=== PATIENT | male | born 1945 | race Caucasian/White ===

== ENCOUNTER 2017-06-22 00:09 | Inpatient (IN) | payer OTHER ==
[~2017-06-22] VITALS: Ht 170.2 cm; Wt 71.4 kg
--- NOTE | ~2017-06-22 | CR72 ---
[facility] A Service of [facility] & [facility] RADIOLOGY TEXT RESULTS PATIENT: TEA DUARTE LOCATION: [facility] 57 : 46 UNIT #: [id number] AGE: [address]: Keith Saravia MD SEX: M ORDER DR: [id number] [place] [address] [facility]. [place], [place] [address] [id number] I MR#: [id number] Acc #: [id number] NAME: TEA DUARTE. : 1945 SEX: M STUDY DATE/TIME: 06/26/2017 6:21 UNIT: [facility] ROOM: [facility] STUDY DESCRIPTION: CR Chest Single View Portable Attending Physician: Keith Saravia M.D. Ordering Physician: Yadira Tapia D.O. Primary Care Physician: Primary Care Physician No MEDICAL IMAGING REPORT This report is preliminary unless electronic signature is present EXAM Portable chest. INDICATIONS Shortness of breath and respiratory distress since June 22, 2017. . FINDINGS Comparison is made to a prior examination from June 24, 2017. Heart size is within normal limits. Dense consolidation within the right upper lobe has worsened when compared to the June 24 examination. Additional infiltrates are seen throughout the left lung which I think are probably stable. No pneumothorax is identified. There is some mild blunting of costophrenic angles which could reflect trace effusions. Dictated by... Sudha White M.D. THIS IS AN ELECTRONICALLY VERIFIED REPORT Sudha White M.D. at 06/27/2017 5:02 PM AFF/lb TD: 06/27/2017 09:17 JOB #: [id number] MEDICAL IMAGING REPORT Page 1 of 1 COPY
--- NOTE | ~2017-06-22 | EKG ---
PATIENT: TEA DUARTE UNIT #: [id number] Ventricular Rate: 75 BPM Atrial Rate: 75 BPM P-R Interval: 132 ms QRS Duration: 80 ms Q-T Interval: 380 ms QTC Calculation(Bezet): 424 ms P [place]: 79 degrees Calculated R [place]: 37 degrees Calculated T [place]: -35 degrees Diagnosis Line: Normal sinus rhythm Diagnosis Line: T wave abnormality, consider inferior ischemia Diagnosis Line: T wave abnormality, consider anterolateral Diagnosis Line: ischemia Diagnosis Line: Abnormal ECG Diagnosis Line: When compared with ECG of 24-JUN-2017 12:31, Diagnosis Line: (unconfirmed) Diagnosis Line: Vent. rate has decreased BY 78 BPM Diagnosis Line: Criteria for Septal infarct are no longer Present Diagnosis Line: ST no longer depressed in Anterolateral leads Diagnosis Line: T wave inversion now evident in Anterior leads Diagnosis Line: Confirmed by NIK CLEMONS MD ([id number]) on 06/29/2017 Diagnosis Line: 7:41:01 AM INTERPRETING MD: KACI CARTER
--- NOTE | ~2017-06-22 | CR72 ---
[facility] A Service of [facility] RADIOLOGY TEXT RESULTS PATIENT: TEA DUARTE LOCATION: [place] [address] : 46 UNIT #: [id number] AGE: [address]: Keith Saravia MD SEX: M ORDER DR: [id number] [place] [id number] [facility]. [place], [place] [address] [id number] I MR#: [id number] Acc #: [id number] NAME: TEA DUARTE : 1945 SEX: M STUDY DATE/TIME: 06/24/2017 12:57 UNIT: [facility] ROOM: [facility] STUDY DESCRIPTION: CR Chest Single View Portable Attending Physician: Keith Saravia M.D. Ordering Physician: Conrad Griffiths M.D. Primary Care Physician: No Primary Care Physician MEDICAL IMAGING REPORT This report is preliminary unless electronic signature is present EXAM Chest portable 06/24/2017 12:57 hours. HISTORY 71-year-old woman complaining of anterior chest pain and shortness of air today. History of CABG and COPD. COMPARISON Chest x-ray 06/23/2017. FINDINGS Upright portable chest demonstrates median sternotomy change with stable heart size. There is diffuse worsening of airspace change in the left midlung, left lung base and right midlung and right lung base since yesterday. Findings could represent edema or pneumonia. IMPRESSION Significant interval worsening of airspace changes in the left midlung, left lung base, right midlung and right lung base with sparing of the right upper lung where there is emphysematous change. Findings have clearly progressed since yesterday. No definite effusions. Dictated by... Karley Cortez M.D. THIS IS AN ELECTRONICALLY VERIFIED REPORT Karley Cortez M.D. at 06/25/2017 5:21 PM SMM/gz TD: 06/24/2017 16:47 JOB #: [id number] MEDICAL IMAGING REPORT [facility] A Service of [facility] & [facility] RADIOLOGY TEXT RESULTS PATIENT: TEA DUARTE LOCATION: [facility] 576-01 : 46 UNIT #: [id number] AGE: [address]: Keith Saravia MD SEX: M ORDER DR: Page 1 of 1 COPY
--- NOTE | ~2017-06-22 | EKG ---
PATIENT: TEA DUARTE UNIT #: [id number] Ventricular Rate: 151 BPM Atrial Rate: 151 BPM P-R Interval: 124 ms QRS Duration: 90 ms Q-T Interval: 266 ms QTC Calculation(Bezet): 421 ms P [place]: 89 degrees Calculated R [place]: 70 degrees Calculated T [place]: 70 degrees Diagnosis Line: Poor data quality, interpretation may be Diagnosis Line: adversely affected Diagnosis Line: Sinus tachycardia Diagnosis Line: T wave abnormality, consider inferior ischemia Diagnosis Line: Abnormal ECG Diagnosis Line: When compared with ECG of 27-JUL-2016 07:51, Diagnosis Line: Vent. rate has increased BY 85 BPM Diagnosis Line: T wave inversion now evident in Inferior leads Diagnosis Line: Confirmed by NIK CLEMONS MD ([id number]) on 06/22/2017 Diagnosis Line: 4:57:58 PM INTERPRETING MD: KACI CARTER
--- NOTE | ~2017-06-22 | CT4 ---
[facility] A Service [facility] RADIOLOGY TEXT RESULTS PATIENT: TEA DUARTE LOCATION: [facility] : 46 UNIT #: [id number] AGE: [address]: Keith Saravia MD SEX: M ORDER DR: [id number] [address] [address] [id number] I MR#: [id number] Acc #: [id number] NAME: TEA DUARTE : 1945 SEX: M STUDY DATE/TIME: 06/30/2017 15:56 UNIT: [facility] ROOM: [facility] STUDY DESCRIPTION: CT Abd and Pelv Wo Cont Attending Physician: Keith Saravia M.D. Ordering Physician: Paolo Edwards M.D. Primary Care Physician: Primary Care Physician No MEDICAL IMAGING REPORT This report is preliminary unless electronic signature is present EXAM CT abdomen and pelvis without contrast INDICATIONS Right-sided abdominal pain today. Anemia since 06/28/2017. PROCEDURE Unenhanced CT of the abdomen and pelvis. This CT exam was performed with one or more of the following radiation dose reduction techniques: automatic exposure control, adjustment of mA and/or kV according to patient size, and iterative reconstruction. COMPARISON 02/10/2016 FINDINGS ABDOMEN WITHOUT CONTRAST: Emphysema in the lung bases. Trace right pleural effusion. The liver, spleen, kidneys, adrenal glands, pancreas and gallbladder unremarkable, unenhanced appearance. Bowel loops are nondilated. No evidence for retroperitoneal hemorrhage. PELVIS WITHOUT CONTRAST: There are a few brachytherapy seeds in the prostate gland. No pelvic mass or fluid. No aggressive-appearing bone lesion. IMPRESSION 1. No acute findings in the abdomen or pelvis. 2. Small right pleural effusion. [facility] A Service [facility] RADIOLOGY TEXT RESULTS PATIENT: TEA DUARTE LOCATION: [facility] : 46 UNIT #: [id number] AGE: [address]: Keith Saravia MD SEX: M ORDER DR: Dictated by... Rolando Jean M.D. THIS IS AN ELECTRONICALLY VERIFIED REPORT Rolando Jean M.D. at 07/01/2017 12:11 PM MORALESD/shankar TD: 07/01/2017 05:03 JOB #: [id number] MEDICAL IMAGING REPORT Page 1 of 1 COPY
--- NOTE | ~2017-06-22 | DS ---
Unit #: [id number] #: [id number] Patient: TEA DUARTE [id number] [address] [address] [id number] I MR#: [id number] NAME: TEA DUARTE ROOM: 576 Age: 71 Sex: M Admission Date: 06/22/2017 : 1945 Discharge Date: 07/03/2017 Attending Physician: Keith Saravia M.D. Primary Care Physician: Primary Care Physician No DISCHARGE SUMMARY ADDENDUM DISCHARGE MEDICATIONS 1. Albuterol sulfate two puffs inhalation q.4 hours as needed. 2. Albuterol ipratropium nebulizer p.r.n. 3. Pulmicort nebulizer b.i.d. 4. Prednisone taper per Pulmonology. At the end of taper, will resume 5 mg p.o. daily. 5. Acetaminophen 500 mg q.6 hours as needed p.r.n. 6. Paxil 20 mg p.o. daily. 7. Zetia 10 mg p.o. daily. 8. Incruse Ellipta one puff p.o. daily. 9. Guaifenesin dextromethorphan liquid 10 mL q.4 hours as needed p.r.n. cough. 10. Ativan 0.5 mg p.o. as needed p.r.n. anxiety. 11. Carvedilol 3.125 mg p.o. b.i.d. 12. Brovana nebulizer inhalation b.i.d. 13. Two liters oxygen nasal cannula continuous. 14. Furosemide 20 mg p.o. b.i.d. 15. Atorvastatin 40 mg p.o. daily. 16. Aspirin 81 mg p.o. daily. 17. Daliresp 500 mcg p.o. daily. 18. Isosorbide mononitrate 30 mg p.o. daily. 19. Nitroglycerin sublingual 0.4 mg p.o. q.5 minutes as needed p.r.n. chest pain. 20. Myrbetriq 50 mg p.o. daily. 21. Septra DS one tablet p.o. b.i.d. for five days. This was per Pulmonary. 22. Protonix 40 mg p.o. daily per GI Services. Dictated by... Pernell Alberts/edmond TD: 07/11/2017 10:43 JOB #: [id number] Unit #: [id number] #: [id number] Patient: TEA DUARTE DISCHARGE SUMMARY Page 1 of 1 X Sabrina Norman APRN X DISCHARGE SUMMARY
--- NOTE | ~2017-06-22 | OR ---
Unit #: [id number] #: [id number] Patient: TEA DUARTE [id number] [place], [place] [address] [id number] I MR#: [id number] NAME: TEA DUARTE. ROOM: 576 Date of Procedure: 06/28/2017 Admission Date: 06/22/2017 Surgeon: Paolo Edwards M.D. : 1945 Attending Physician: Keith Saravia M.D. Primary Care Physician: Primary Care Physician No OPERATIVE REPORT PROCEDURE PERFORMED Fiberoptic bronchoscopy. INDICATION A 71-year-old white male with hemoptysis, severe COPD. PREOPERATIVE DIAGNOSIS Hemoptysis. POSTOPERATIVE DIAGNOSIS No endobronchial lesion. Diffuse blood throughout tracheobronchial tree. No active bleeding. No endobronchial lesions. DESCRIPTION OF PROCEDURE Procedure was done on MAC. The patient was placed on supplemental oxygen, O2 saturations remained greater than 90%. The fiberoptic bronchoscope was introduced through the oral cavity via the bite block. The vocal cords were identified and moved normally to breathing, phonation. There was no obvious upper airway bleeding site. There was blood that emanated through the vocal cords into the upper airway. The bronchoscope was passed through the vocal cords into the trachea. There was blood throughout the tracheobronchial tree. There were no lesions identified in the trachea. The main aditya was sharp. The bronchoscope was advanced down the right mainstem into the bronchus intermedius, right middle lobe, right lower lobe, and right upper lobe. There were no endobronchial lesions. There was blood throughout, which was easily suctioned free. There was no evidence of active bleeding site. The bronchoscope was advanced down the left mainstem into the left lower lobe and upper lobe. There was blood seen throughout. There were no endobronchial lesions identified. There was no active bleeding identified. The left lower lobe and upper lobe were washed clear of blood. The bronchoscope was withdrawn and then placed in the right upper lobe anterior segment with 60 mL of normal saline instilled with return of only 8 mL of fluid. It was sent for evaluation as was the bronchial washings. The patient tolerated the procedure well and will be monitored in the outpatient area and returned to his room. Dictated by... Paolo Edwards M.D. LP/modl Unit #: [id number] #: [id number] Patient: TEA DUARTE TD: 06/28/2017 15:01 JOB #: [id number] OPERATIVE REPORT Page 1 of 1 X Paolo Edwards MD PROCEDURE OPERATIVE NOTE
--- NOTE | ~2017-06-22 | CO ---
Unit #: [id number] #: [id number] Patient: TEA MOORE [id number] [place] [id number] [facility] [place] [facility]. [place], [place] [address] [id number] I MR#: [id number] NAME: TEA MOORE ROOM: 557 Age: 71 Sex: M Admission Date: 06/22/2017 : 1945 Attending Physician: Keith Saravia M.D. Primary Care Physician: Primary Care Physician No CONSULTATION REPORT HISTORY OF PRESENT ILLNESS The patient is a 71-year-old gentleman, who has COPD and chronic respiratory failure, followed by Dr. Edwards in our office. He also has coronary artery disease. He gets much of his care at [facility]. Over the last a week or so, he has had "spells" of shortness of breath and diaphoresis. No definite wheezing. No definite sputum production and initially, no chest pain. No fever has been documented. He has been evaluated multiple times and was told "it's my heart." He actually saw Dr. Griffiths, who recommended a cardiac cath, but he wanted to go home first. He did then have another episode. This episode was associated with some epigastric discomfort. He ultimately went back to [facility] and then transferred here. Cardiac cath is scheduled for tomorrow. Chest x-ray reveals bilateral pulmonary infiltrates, but in a very atypical pattern for congestive heart failure. There was a question of pneumonia and certainly has severe COPD and we were asked to evaluate the patient. Arterial blood gas was performed last night, which showed respiratory acidosis. Currently, he is on nasal cannula oxygen after trial of mask ventilation last night. He is nontoxic and feels better. PAST MEDICAL HISTORY Remarkable for COPD; chronic respiratory failure, on oxygen 2 L at home; history of coronary artery disease; aortic stenosis; left ventricular dysfunction with an EF approximately 40%; hypertension; hyperlipidemia; gastroesophageal reflux; and history of prostate cancer. MEDICATIONS AT HOME He is on Brovana and Pulmicort Minineb twice a day, Incruse once a day, albuterol as needed. He is also on diltiazem, prednisone 5 mg a day, Myrbetriq, Zetia, Imdur, Lasix, Coreg, oxygen, Lipitor, Paxil, Plavix, Ativan, Daliresp, and Lissy aspirin. ALLERGIES No known medical allergies, although he did have difficulty taking Chantix in the past. SOCIAL HISTORY Quit smoking 1 year ago. He lives at home. FAMILY HISTORY No definite familial lung disease. REVIEW OF SYSTEMS As above. Also, denies any nausea, vomiting, hematuria, dysuria, focal weakness, or paresthesias. He did have some tingling in his legs, related Unit #: [id number] #: [id number] Patient: TEA MOORE to this last episode. He also states with this last episode when he got nitroglycerin, all of his symptoms went away. Further review of systems negative. PHYSICAL EXAMINATION GENERAL: Reveals a patient, who is in no acute distress. He is afebrile. VITAL SIGNS: Pulse 86, respiratory rate 18, blood pressure 123/88. He currently is on 2 L. HEENT: Pupils equal, round, and reactive to light. Sclerae anicteric. Head atraumatic. NECK: Supple. No supraclavicular or cervical adenopathy appreciated. Mucous membranes moist. CHEST: No expiratory wheeze. Does have some fine crackles. No stridor. CARDIAC: Reveals regular rate and rhythm. Does have a systolic murmur. No gallop. ABDOMEN: Soft and nontender. No hepatomegaly or rebound. EXTREMITIES: Reveal no calf tenderness, no clubbing, cyanosis, or edema. NEUROLOGIC: Grossly intact. No focal motor or sensory deficits. DIAGNOSTIC STUDIES IMAGING STUDIES: Chest x-ray with extensive left-sided alveolar and interstitial infiltrates. He has right lower lobe alveolar and interstitial infiltrates. EKG; he does have some new EKG changes according to Dr. Griffiths. LABORATORY RESULTS: Arterial blood gas; pH is 7.29, pCO2 of 65, PO2 of 80, that was on 100%, on much less oxygen now. BUN is 22, creatinine is 0.8. Troponin is 0.30. BNP is 210. INR normal. White blood cell count 14, hemoglobin 13, and platelet count 240. IMPRESSION 1. Shortness of breath. I suspect this represents angina with some degree of "flash pulmonary edema.". 2. Respiratory failure, acute on chronic hypercapnic-hypoxemic respiratory failure, fairly marked improvement, also would suggest a pulmonary edema source. 3. Chronic obstructive pulmonary disease without definite bronchospasm. 4. Abnormal chest x-ray with patchy pulmonary infiltrates, suspect atypical pulmonary edema, but cannot rule out pneumonia. 5. Coronary artery disease. 6. Chronic respiratory failure. 7. Medical problems listed above. PLAN As above. Suspect asymmetric pulmonary edema. However, I will check a procalcitonin level. Start empiric oxygen given the severity of his illness. Maximize pulmonary status. I will recheck his arterial blood gas, primarily to prognosticate for cardiac cath tomorrow. I suspect it has improved dramatically. I will review the last two office notes from Dr. Edwards. Chest x-ray, PE protocol, and I suspect it will show significant emphysematous bulla in his right upper lobe, which would explain this asymmetry. Thank you very much for allowing me to participate in the care of Mr. Moore. Dictated by... Unit #: [id number] #: [id number] Patient: TEA MOORE Judy Hager/akua TD: 06/23/2017 10:04 JOB #: [id number] CC: Judy Tello M.D. CONSULTATION REPORT Page 1 of 1 X Dakota Torres MD CONSULTATION REPORT
--- NOTE | ~2017-06-22 | CR72 ---
[facility] A Service of [facility] & [facility] RADIOLOGY TEXT RESULTS PATIENT: TEA DUARTE LOCATION: [place] [address] : 46 UNIT #: [id number] AGE: [address]: Keith Saravia MD SEX: M ORDER DR: [id number] [facility] [address] [facility] [place] [facility]. [place], [place] [address] [id number] I MR#: [id number] Acc #: [id number] NAME: TEA DUARTE : 1945 SEX: M STUDY DATE/TIME: 06/23/2017 07:15 UNIT: [facility] ROOM: [facility] STUDY DESCRIPTION: CR Chest Single View Portable Attending Physician: Keith Saravia M.D. Ordering Physician: Dakota Torres M.D. Primary Care Physician: No Primary Care Physician MEDICAL IMAGING REPORT This report is preliminary unless electronic signature is present EXAM Chest portable, 06/23/2017, 0715 hours. HISTORY 71-year-old woman with complaint of chest pain, shortness of air. History of COPD. Symptoms began today. COMPARISON Chest x-ray and CT chest, 06/22/2017. FINDINGS Portable upright chest demonstrates CABG change with normal heart size and normal aorta. Lungs demonstrate emphysematous change with an overall decrease in the interstitial markings throughout the left lung and the right lung bases compared to 06/22/2017. There is residual patchy airspace density laterally at the right base where dense consolidation was seen on CT yesterday. This appears improved as well. No effusions seen. IMPRESSION Significant underlying emphysematous change with marked decrease in diffuse interstitial changes suggesting improved edema. There is also improvement in dense airspace density in the lateral mid to lower lung on the right where dense airspace change seen on yesterday's CT. There are no new densities. No effusion or pneumothorax. Dictated by... Karley Cortez M.D. THIS IS AN ELECTRONICALLY VERIFIED REPORT Karley Cortez M.D. at 06/23/2017 1:47 PM VERENICE/cindy TD: 06/23/2017 13:08 [facility] A Service of [facility] & [facility] RADIOLOGY TEXT RESULTS PATIENT: TEA DUARTE [facility] [address] [facility] [id number] : 47 UNIT #: [id number] AGE: [address]: Keith Saravia MD SEX: M ORDER DR: JOB #: [id number] MEDICAL IMAGING REPORT Page 1 of 1 COPY
--- NOTE | ~2017-06-22 | DS ---
Unit #: [id number] #: [id number] Patient: TEA DUARTE [id number] [address] [place], [place] [address] [id number] I MR#: [id number] NAME: TEA DUARTE. ROOM: 576 Age: 71 Sex: M Admission Date: 06/22/2017 : 1945 Discharge Date: 07/03/2017 Attending Physician: Keith Saravia M.D. Primary Care Physician: Primary Care Physician No DISCHARGE SUMMARY DISCHARGE DIAGNOSES 1. New onset chest tightness with EKG abnormalities of anterior wall ischemia. Peak troponin during admission was 0.45. 2. Status post cardiac catheterization per Dr. Griffiths on 06/23/2017, which showed. a. LVEF of 55%, calcified arteries, saphenous vein graft to the right coronary artery was patent with no distal disease, CAMRYN-3 flow. b. Left main distal 40%, ramus ostial 99% small vessel. c. Left anterior descending proximal 75% at the first septal, mid 100%, distal fills by retrograde flow. First diagonal small. d. Left circumflex was normal. e. Saphenous vein graft to the left anterior descending and the obtuse marginal are known to be occluded. These were not injected. According to his report, his catheterization findings have not changed significantly since 2016. PCI on the proximal left anterior descending could risk including the first and second septal perforators, ramus, cannot undergo PCI of the ostium. 3. Acute hypoxic respiratory failure. 4. Chronic obstructive pulmonary disease. 5. Known coronary artery disease with a history of coronary artery bypass graft. 6. Hemoptysis, now resolved. Status post bronchoscopy with no obvious mass. 7. Acute blood loss anemia, stable. Hemoglobin currently stable. 8. Nonsustained ventricular tachycardia. 9. Status post esophagogastroduodenoscopy with gastric ulcers in the cardia and antrum, started on proton pump inhibitor therapy. 10. Moderate to severe aortic stenosis. Aortic valve area 0.9 cm2. 11. Hypertension. 12. Hyperlipidemia. 13. Gastroesophageal reflux disease. 14. Nicotine abuse. HOSPITAL COURSE This is a pleasant 71-year-old male who follows with Dr. Griffiths. He initially was seen in the office by Dr. Griffiths on 06/21/2017 with complaints of midsternal area chest pain. Cardiac enzymes are normal, but there were definite ST-T wave changes noted in the anterior lateral leads, which were new compared to the previous tracings. The patient had been seen at [facility] the week prior with complaints of shortness of breath and burning indigestion. He also had a 2D echocardiogram performed at [facility], which showed moderate to Unit #: [id number] #: [id number] Patient: TEA DUARTE severe aortic stenosis with an aortic valve area of 0.9 cm2 with a left ventricular ejection fraction of 62%. Normal right heart pressures. No significant mitral or tricuspid valve disease. The patient was advised he should undergo repeat cardiac catheterization that angina could be related to ischemia in the distribution of the LAD causing ST-T wave abnormalities in V2 through V6, but unfortunately he is not a candidate for repeat coronary artery bypass graft surgery under anesthesia. His symptoms also could have been participated by moderate to severe , a choice could be made to perform TAVR, but because of his comorbidities of lung disease, a diagnosis of severe aortic stenosis has to be established and significant coronary artery disease ruled out by cardiac catheterization. We were planning to schedule for outpatient cardiac catheterization on . However, in the interim, the patient went home, ended up having issues with shortness of breath and acute hypoxic respiratory failure, went back to the hospital and was transferred to [facility] as a direct admission for acute hypoxic respiratory failure, most likely secondary to pneumonia, but also to rule out acute coronary syndrome. Troponin was indeterminate at 0.30, but peaked at 0.45. Next, he underwent repeat cardiac catheterization on 06/23/[address] Griffiths, which you can see the results from above. Cath essentially showed no significant change since his prior cath in 2016. During his admission, he was already on Plavix, but was started on Lovenox per protocol. During the admission, he developed hemoptysis and also a hemoglobin dropped as low as 6.5, requiring blood transfusion. Pulmonary was also consulted. The patient underwent bronchoscopy, which showed a diffuse blood throughout the tracheobronchial tree, but no active bleeding. His Lovenox and Plavix were discontinued. The patient's hemoglobin stabilized over several days. GI also saw the patient, did EGD, which showed multiple linear ulcers in the gastric cardia and a few in the gastric antrum pairing with chronic gastritis. Biopsies were taken and sent. Normal duodenum, distal duodenum and normal esophagus. He was started on PPI therapy. The patient did have a brief period of nonsustained ventricular tachycardia, was placed on amiodarone throughout his hospital stay. He is also being treated for pneumonia as well as COPD exacerbation during this admission. AFB was negative. Culture was positive for Serratia. Cytology was negative. He has been seen and evaluated today. It is felt he is stable for discharge. His hemoglobin over the last several days has been stable in the 9 range. He reports still some intermittent hemoptysis, but much improved from prior. I have discussed this case with Dr. Raya as well as a pulmonary doctor following and the gastrointestinal doctor, all agree the patient is stable to be discharged home today. CONSULTANTS 1. Dr. Wilburn from GI. 2. Dr. Edwards from Pulmonary. DIAGNOSTIC STUDIES LABORATORY RESULTS: Hemoglobin today 9.1, hematocrit 27.3, WBC 8.7, platelet count 155. Glucose 100, BUN 18, creatinine 0.7, sodium 137, potassium 4.8, chloride 102, CO2 of 30. Troponin peaked during the hospitalization at 0.45, was trending down. Last troponin was 0.21 on 06/26/2017. He did have heme-positive stool during admission. Bronchial culture was positive for Serratia marcescens. Unit #: [id number] #: [id number] Patient: TEA DUARTE IMAGING STUDIES: CT of the abdomen and pelvis showed no acute findings. Small right pleural effusion. Cardiac rhythm was normal sinus rhythm, rate of 62 beats per minute. PHYSICAL EXAMINATION VITAL SIGNS: Temperature 98.0, respiratory rate 18 to 20, pulse 76, blood pressure 120/59. HEENT: Head is atraumatic and normocephalic. Pupils are equal and round. NECK: Trachea is midline. No lymphadenopathy. No thyromegaly. No JVD. Carotid upstrokes are normal. LUNGS: Clear to auscultation anteriorly. The patient has barrel chest. Some scattered rhonchi and expiratory wheezes are noted. No rales are noted on exam. ABDOMEN: Soft, nontender, nondistended. Bowel sounds are present. EXTREMITIES: Pulses are palpable. No clubbing, cyanosis, or edema. NEUROLOGIC: He is awake, alert, and oriented. He moves all extremities equal. No focal motor deficits are noted. He follows commands with ease. DISCHARGE INSTRUCTIONS The patient has been seen and evaluated by both myself and Dr. Raya today. His case has been discussed with all services and he has been deemed stable for discharge home today. He will follow up with primary care physician in 1 to 2 weeks. He will follow up with Dr. Edwards in 2 to 3 weeks. The patient needs a repeat CT of the chest in 4 to [address] Edwards. At this time, no anticoagulation will be sent out with the patient and his anti-platelet therapy of Plavix has been discontinued. He will only be going home with aspirin until further workup by Pulmonary MD. The patient will also be sent out with a few new medicines. Please see above for the active med list. Dr. Wilburn also gave his approval for the patient to be discharged today. He does not need to follow up with him. I have written for CBC to be drawn in 1 week with results to be faxed to Dr. Griffiths and also advised the patient on signs and symptoms of bleeding to look for. He is stable for discharge today. He will follow up with Dr. Griffiths on 09/01/2017 at 2:30 p.m. The patient was advised if chest pain recurs or starts to have issues with his blood pressure, to give the office a call. He has sublingual nitroglycerin at present, new prescription was given for him. If chest pain persists, he was advised to call EMS. Condition is stable at discharge. Dictated by... Sabrina Norman A.P.R.N. LMW/modl TD: 07/05/2017 07:42 JOB #: [id number] Unit #: [id number] #: [id number] Patient: TEA DUARTE DISCHARGE SUMMARY Page 1 of 1 X Sabrina Norman APRN DISCHARGE SUMMARY
--- NOTE | ~2017-06-22 | DS ---
Unit #: [id number] #: [id number] Patient: TEA DUARTE [id number] [address] [address] [id number] I MR#: [id number] NAME: TEA DUARTE ROOM: 576 Age: 71 Sex: M Admission Date: 06/22/2017 : 1945 Discharge Date: 07/03/2017 Attending Physician: Keith Saravia M.D. Primary Care Physician: Rubi Primary Care Physician DISCHARGE SUMMARY ADDENDUM ADDITIONAL DISCHARGE MEDICATIONS Amiodarone 200 mg p.o. daily. Dictated by... Sabrina Norman A.P.R.N. LMW/gz TD: 07/11/2017 11:03 JOB #: [id number] DISCHARGE SUMMARY Page 1 of 1 X Sabrina Norman APRN X DISCHARGE SUMMARY
--- NOTE | ~2017-06-22 | CR72 ---
[facility] A Service of [facility] RADIOLOGY TEXT RESULTS PATIENT: TEA DUARTE LOCATION: [address] : [birth year] UNIT #: [id number] AGE: [address]: Keith Saravia MD SEX: M ORDER DR: [id number] [facility] [address]. [place], [place] [address] [id number] I MR#: [id number] Acc #: [id number] NAME: TEA DUARTE. : 1945 SEX: M STUDY DATE/TIME: 06/24/2017 15:10 UNIT: [facility] ROOM: [facility] STUDY DESCRIPTION: CR Chest Single View Portable Attending Physician: Keith Saravia M.D. Ordering Physician: Dakota Torres M.D. Primary Care Physician: No Primary Care Physician MEDICAL IMAGING REPORT This report is preliminary unless electronic signature is present EXAMINATION AP portable chest. DATE 06/24/2017 at 15:10. HISTORY 71-year-old male shortness of breath today. On BiPap. Previous CABG. COMPARISON AP portable chest 06/24/2017 at 12:57. FINDINGS Advanced emphysematous changes are present, greatest within the right upper lobe. Diffuse dense airspace disease is identified throughout both lungs. The airspace disease appears slightly increased within the right mid lung compared to prior study. Trace bilateral pleural effusions versus chronic pleural thickening, unchanged. No pneumothorax. Heart size is stable and within normal limits with signs of prior median sternotomy. IMPRESSION 1. Diffuse dense airspace disease changes throughout both lungs. Correlate clinically for pneumonia. The airspace disease appears worse particularly within the right midlung compared to the study performed earlier today. 2. Emphysematous changes predominately within the right upper lobe. Dictated by... Zaida Michaels M.D. [facility] A Service [facility] RADIOLOGY TEXT RESULTS PATIENT: TEA DUARTE LOCATION: [address] : [birth year] UNIT #: [id number] AGE: [address]: Keith Saravia MD SEX: M ORDER DR: THIS IS AN ELECTRONICALLY VERIFIED REPORT Zaida Michaels M.D. at 06/25/2017 1:11 PM CRISTI/isaiah TD: 06/24/2017 21:51 JOB #: [id number] MEDICAL IMAGING REPORT Page 1 of 1 COPY
--- NOTE | ~2017-06-22 | CT16 ---
[facility] A Service of [facility] RADIOLOGY TEXT RESULTS PATIENT: TEA DUARTE LOCATION: [place] [address] : [birth year] UNIT #: [id number] AGE: [address]: Keith Saravia MD SEX: M ORDER DR: [id number] [place] [id number] [facility]. [place], [place] [address] [id number] I MR#: [id number] Acc #: [id number] NAME: TEA DUARTE. : 1945 SEX: M STUDY DATE/TIME: 06/22/2017 20:52 UNIT: [facility] ROOM: [facility] STUDY DESCRIPTION: CT Angio Chest for PE Attending Physician: Keith Saravia M.D. Ordering Physician: Dakota Torres M.D. Primary Care Physician: Primary Care Physician No MEDICAL IMAGING REPORT This report is preliminary unless electronic signature is present EXAM CTA chest with contrast 06/22/2017 HISTORY 71-year-old male with shortness of air and chest pain for 3 days. COMPARISON None. TECHNIQUE Helical scan performed through the chest following the timed bolus administration of IV contrast per PE protocol. Coronal 3-D MIP reconstructions. Sagittal reformatted images. This CT examination was performed with one or more of the following radiation dose reduction techniques: automatic exposure control, adjustment of mA and/or kV according to patient size, and iterative reconstruction. FINDINGS There is adequate opacification of the pulmonary arteries and no filling defects noted. Thoracic aorta normal in course and caliber without dissection. Heart size normal. No pericardial effusion. No pleural effusions. No pneumothorax. Severe emphysema. There is dense consolidation in the posterior right upper lobe as well as dense consolidation in the inferomedial left lower lobe. Findings most concerning for pneumonia and follow up to resolution is recommended. Scanning through the upper abdomen is unremarkable. No acute bony abnormality. IMPRESSION 1. Negative for pulmonary emboli. 2. Negative for thoracic aortic aneurysm/dissection. [facility] A Service [facility] RADIOLOGY TEXT RESULTS PATIENT: TEA DUARTE LOCATION: [facility] : [birth year] UNIT #: [id number] AGE: [address]: Keith Saravia MD SEX: M ORDER DR: 3. Dense consolidation in the right upper lobe and left lower lobe, most concerning for pneumonia. Recommend follow up to resolution. 4. Severe emphysema. Dictated by... Trip Woods M.D. THIS IS AN ELECTRONICALLY VERIFIED REPORT Trip Woods M.D. at 06/23/2017 4:14 PM GM/lucho TD: 06/23/2017 10:58 JOB #: [id number] MEDICAL IMAGING REPORT Page 1 of 1 COPY
--- NOTE | ~2017-06-22 | CR71 ---
[facility] A Service of [facility] RADIOLOGY TEXT RESULTS PATIENT: TEA DUARTE LOCATION: [facility] : [birth year] UNIT #: [id number] AGE: [address]: Keith Saravia MD SEX: M ORDER DR: [id number] [facility] [address] [place], [place] [address] [id number] I MR#: [id number] Acc #: [id number] NAME: TEA DUARTE. : 1945 SEX: M STUDY DATE/TIME: 06/22/2017 2:46 UNIT: [facility] ROOM: [facility] STUDY DESCRIPTION: CR Chest Single View Attending Physician: Keith Saravia M.D. Ordering Physician: Juan Luis Juárez M.D. Primary Care Physician: No Primary Care Physician MEDICAL IMAGING REPORT This report is preliminary unless electronic signature is present EXAM Portable chest INDICATION Respiratory distress. Shortness of air today. PROCEDURE Frontal view chest. COMPARISON 12/31/2016 FINDINGS Heart size is unchanged. Previous sternotomy and CABG. Diffuse interstitial and alveolar opacity throughout the left lung and at the right lung base. No visible pleural fluid or pneumothorax. Background emphysema. IMPRESSION Interstitial and alveolar opacities throughout the entire left lung and at the right lung base could represent edema or pneumonia. Dictated by... Rolando Jean M.D. THIS IS AN ELECTRONICALLY VERIFIED REPORT Rolando Jean M.D. at 06/23/2017 9:56 PM EED/aa TD: 06/22/2017 11:00 JOB #: [id number] [facility] A Service of [facility] RADIOLOGY TEXT RESULTS PATIENT: TEA DUARTE LOCATION: [facility] : [birth year] UNIT #: [id number] AGE: [address]: Keith Saravia MD SEX: M ORDER DR: MEDICAL IMAGING REPORT Page 1 of 1 COPY
--- NOTE | ~2017-06-22 | OR ---
Unit #: [id number] #: [id number] Patient: TEA DUARTE [id number] [address] [address] [id number] I MR#: [id number] NAME: TEA DUARTE. ROOM: 576 Date of Procedure: 07/01/2017 Admission Date: 06/22/2017 Surgeon: Sidney Wilburn M.D. : 1945 Attending Physician: Keith Saravia M.D. Primary Care Physician: Primary Care Physician No OPERATIVE REPORT PROCEDURE PERFORMED Esophagogastroduodenoscopy with biopsies. INDICATIONS FOR PROCEDURE The patient with significant worsening anemia, black stools, possible GI bleed, Hemoccult positive. MEDICATIONS Monitored anesthesia. POSTOPERATIVE FINDINGS 1. Multiple linear ulcers in gastric cardia and few in the gastric antrum along with chronic appearing gastritis. Biopsies taken. 2. Normal duodenum and distal duodenum. 3. Normal esophagus. PLAN Continue PPI therapy. Avoid blood thinners. DESCRIPTION OF PROCEDURE The patient was explained of the procedure risks and benefits along with risks and benefits of anesthesia. He was brought to the endoscopy room. Propofol anesthesia was given. Bite block was placed. The scope was passed down the mouth into esophagus, stomach, duodenum, and distal duodenum. Findings as described. Biopsies taken. Gently, I pulled the scope out of the patient's mouth. He tolerated it well. Dictated by... Judy Jackson/akua TD: 07/01/2017 13:49 JOB #: [id number] Unit #: [id number] #: [id number] Patient: TEA DUARTE OPERATIVE REPORT Page 1 of 1 X Sidney Wilburn MD X PROCEDURE OPERATIVE NOTE
--- NOTE | ~2017-06-22 | EKG ---
PATIENT: TEA DUARTE UNIT #: [id number] Ventricular Rate: 77 BPM Atrial Rate: 77 BPM P-R Interval: 136 ms QRS Duration: 82 ms Q-T Interval: 354 ms QTC Calculation(Bezet): 400 ms P [place]: 80 degrees Calculated R [place]: 27 degrees Calculated T [place]: -7 degrees Diagnosis Line: Normal sinus rhythm Diagnosis Line: Septal infarct , age undetermined Diagnosis Line: T wave abnormality, consider anterolateral Diagnosis Line: ischemia Diagnosis Line: Abnormal ECG Diagnosis Line: Diagnosis Line: Confirmed by NIK CLEMONS MD ([id number]) on 06/22/2017 Diagnosis Line: 5:01:07 PM INTERPRETING MD: KACI CARTER
--- NOTE | ~2017-06-22 | EKG ---
PATIENT: TEA DUARTE UNIT #: [id number] Ventricular Rate: 80 BPM Atrial Rate: 80 BPM P-R Interval: 142 ms QRS Duration: 80 ms Q-T Interval: 358 ms QTC Calculation(Bezet): 412 ms P [place]: 87 degrees Calculated R [place]: 52 degrees Calculated T [place]: -81 degrees Diagnosis Line: Normal sinus rhythm Diagnosis Line: T wave abnormality, consider inferior ischemia Diagnosis Line: T wave abnormality, consider anterolateral Diagnosis Line: ischemia Diagnosis Line: Abnormal ECG Diagnosis Line: When compared with ECG of 22-JUN-2017 14:26, Diagnosis Line: (unconfirmed) Diagnosis Line: Criteria for Septal infarct are no longer Present Diagnosis Line: Inverted T waves have replaced nonspecific T wave Diagnosis Line: abnormality in Inferior leads Diagnosis Line: Confirmed by NIK CLEMONS MD ([id number]) on 06/29/2017 Diagnosis Line: 7:26:30 AM INTERPRETING MD: KACI CARTER
--- NOTE | ~2017-06-22 | EKG ---
PATIENT: TEA DUARTE UNIT #: [id number] Ventricular Rate: 80 BPM Atrial Rate: 80 BPM P-R Interval: 136 ms QRS Duration: 80 ms Q-T Interval: 386 ms QTC Calculation(Bezet): 445 ms P [place]: 82 degrees Calculated R [place]: 34 degrees Calculated T [place]: 7 degrees Diagnosis Line: Normal sinus rhythm Diagnosis Line: Septal infarct (cited on or before 22-JUN-2017) Diagnosis Line: ST and T wave abnormality, consider anterolateral Diagnosis Line: ischemia Diagnosis Line: Abnormal ECG Diagnosis Line: When compared with ECG of 22-JUN-2017 08:08, Diagnosis Line: (unconfirmed) Diagnosis Line: Serial changes of Septal infarct Present Diagnosis Line: Confirmed by NIK CLEMONS MD ([id number]) on 06/29/2017 Diagnosis Line: 7:25:28 AM INTERPRETING MD: KACI CARTER
--- NOTE | ~2017-06-22 | EKG ---
PATIENT: TEA DUARTE UNIT #: [id number] Ventricular Rate: 153 BPM Atrial Rate: 153 BPM P-R Interval: 106 ms QRS Duration: 86 ms Q-T Interval: 248 ms QTC Calculation(Bezet): 395 ms P [place]: 54 degrees Calculated R [place]: 22 degrees Calculated T [place]: -108 degrees Diagnosis Line: Sinus tachycardia with short IA Diagnosis Line: Septal infarct , age undetermined Diagnosis Line: Marked ST abnormality, possible anterior Diagnosis Line: subendocardial injury Diagnosis Line: Abnormal ECG Diagnosis Line: When compared with ECG of 23-JUN-2017 05:29, Diagnosis Line: (unconfirmed) Diagnosis Line: Significant changes have occurred Diagnosis Line: Confirmed by NIK CLEMONS MD ([id number]) on 06/29/2017 Diagnosis Line: 7:36:06 AM INTERPRETING MD: KACI CARTER
[~2017-06-22 00:09] MED LIST: ALBUTEROL 0.5ML INH; ALBUTEROL17 GM INH; ASPIRIN325 M1 PO; ASPIRIN81 M2 PO; ASPIRIN81 MG PO; ASPIRINEC PO; ATIVAN0.5 M1 PO; ATIVAN0.5 MG PO; CARDURA PO; CARTIA XT120 MG PO; CELEBREX PO; CLOPIDOGREL BIS75 MG PO; CLOPIDOGREL75 MG PO; COMBIVENT U/D3 M1 INH; COREG3.125 M1 PO; DALIRESP500 MCG PO; DITROPAN PO; FOSINOPRIL PO; FOSINOPRIL SODI10 MG PO; IMDUR-ER30 M1 PO; INCRUSE ELLI62.5 MCG INH; IPRAT-ALBUT 0.5-3 ML IH; IPRATR-ALBUTEROL3 ML INH; LIPITOR40 MG PO; LISINOPRIL PO; LISINOPRIL10 MG PO; LOPRESSOR PO; LOW DOSE ASPIRI81 M1 PO; METOPROLOL TAR25 MG PO; MOBIC15 MG PO; MONOPRIL10 MG PO; NITROGLYCERIN0.4 MG SL; NITROGLYGERIN0.4 MG SL; NITROSTAT0.4 MG PO; NORVASC PO; PAROXETINE HCL20 M1 PO; PLAVIX PO; PREDNISONE PO; PREDNISONE10 MG; PREDNISONE10 MG/DOSE PO; PRINIVIL10 MG PO; PROAIR HFA8.5 GM INH; SPIRIVA18 MCG INH; SYMBICORT INH; TUSSIN DM SYRU120 ML PO; VIAGRA PO; VYTORIN 10-40 M1 TAB PO; VYTORIN 10/40 T1 TAB PO; ZETIA PO
[2017-06-22 02:16] LABS: ARTERIAL BLD GAS O2 SATURATION 93.1 % (90.0-100.0); ARTERIAL BLOOD GAS CARBOXY HB 0.6 %sat (0.0-9.0); ARTERIAL BLOOD GAS HCO3 31.6 mmol/L; ARTERIAL BLOOD GAS MET HB 0.8 %sat (0.0-2.0); ARTERIAL BLOOD GAS PO2 80.1 mmHg (80.0-100); ARTERIAL BLOOD GAS pH 7.294 (7.350-7.450)
[2017-06-22 02:17] LABS: ARTERIAL BLOOD GAS ALLEN TEST NORMAL; ARTERIAL BLOOD GAS ART SITE RIGHT RADIAL; ARTERIAL BLOOD GAS DELIVERY NON REBREATHER MASK; ARTERIAL BLOOD GAS PCO2 65.1 mmHg (35.0-45.0); ARTERIAL DRAW? YES
[2017-06-22 03:04] LABS: BASOPHIL% 0.2 % (0-2.5); DIFF IND NO; EOSINOPHIL# 0.1 X10e3 (0-0.7); LYMPHOCYTE# 1.9 X10e3 (1.0-3.5); LYMPHOCYTE% 13.7 % (17.0-45.0); MEAN CELL VOLUME 84.4 FL (83-96); MEAN CORPUSCULAR HEMOGLOBIN 27.5 PG (28-34); MEAN CORPUSCULAR HGB CONC 32.6 g/dL (30-36); MONOCYTE% 7.3 % (3.0-12.0); NEUTROPHIL# 10.9 X10e3 (1.5-7.1); NEUTROPHIL% 77.8 % (40-75); PLATELET COUNT 240 X10e3 (140-420); RED BLOOD COUNT 4.74 X10e (3.90-5.60); RED CELL DISTRIBUTION WIDTH 15.6 % (11.0-15.5)
[2017-06-22] MEDS ORDERED: TAZTIA XT120 MG PO (03:13)
[2017-06-22] MEDS ORDERED: PROAIR RESPICL90 MCG INH (03:16)
[2017-06-22] MEDS ORDERED: PREDNISONE5 MG PO (03:17)
[2017-06-22] MEDS ORDERED: COMBIVENT MININEB NEB (03:19)
[2017-06-22] MEDS ORDERED: BROVANA15 MCG/2 M INH (03:20)
[2017-06-22] MEDS ORDERED: PULMICORT0.5 MG/21 NEB (03:21)
[2017-06-22] MEDS ORDERED: MYRBETRIQ50 MG PO (03:22)
[2017-06-22] MEDS ORDERED: ACETAMINOPHEN500 M5 PO (03:24)
[2017-06-22] MEDS ORDERED: ROBITUSSIN COU237 M2 PO (03:25)
[2017-06-22] MEDS ORDERED: IMDUR-ER30 MG PO (03:26)
[2017-06-22] MEDS ORDERED: ZETIA PO (03:26)
[2017-06-22] MEDS ORDERED: LASIX20 MG PO (03:27)
[2017-06-22] MEDS ORDERED: CARVEDILOL3.125 MG PO (03:27)
[2017-06-22] MEDS ORDERED: LIPITOR40 MG PO (03:28)
[2017-06-22] MEDS ORDERED: PAXIL PO (03:28)
[2017-06-22] MEDS ORDERED: OXYGEN (03:28)
[2017-06-22] MEDS ORDERED: ATIVAN0.5 M1 PO (03:29)
[2017-06-22] MEDS ORDERED: CLOPIDOGREL75 MG PO (03:29)
[2017-06-22] MEDS ORDERED: DALIRESP500 MCG PO (03:30)
[2017-06-22] MEDS ORDERED: INCRUSE ELLI62.5 MCG PO (03:30)
[2017-06-22] MEDS ORDERED: NITROGLYGERIN0.4 MG PO (03:31)
[2017-06-22 03:32] LABS: BUN/CREATININE RATIO 27.5; CALCIUM SERUM 8.8 mg/dL (8.4-10.2); CREATININE SERUM 0.8 mg/dL (0.6-1.4); GLOM FILT RATE Estimated 90.5 mL/min (>60); POTASSIUM 3.9 mmol/L (3.5-5.1); PROTEIN TOTAL SERUM 7.1 g/dL (6.0-8.3)
[2017-06-22] MEDS ORDERED: BAYER CHEWABLE81 MG PO (03:32)
[2017-06-22 03:36] LABS: BILIRUBIN,TOTAL 0.1 mg/dL (0.2-2.0)
[2017-06-22 03:59] LABS: PROTHROMBIN TIME (PATIENT) 10.5 SECONDS (10.0-11.7)
[2017-06-22 09:37] LABS: CK TOTAL 57 IU/L (36-174)
[2017-06-22 13:27] LABS: ARTERIAL BLD GAS O2 SATURATION 93.5 % (90.0-100.0); ARTERIAL BLOOD GAS CARBOXY HB 1.1 %sat (0.0-9.0); ARTERIAL BLOOD GAS PCO2 45.2 mmHg (35.0-45.0); ARTERIAL BLOOD GAS pH 7.485 (7.350-7.450)
[2017-06-22 13:32] LABS: ARTERIAL BLOOD GAS ART SITE RIGHT BRACHIAL; ARTERIAL BLOOD GAS DELIVERY NASAL CANNULA; ARTERIAL DRAW? YES
[2017-06-22 15:05] LABS: %MB 12.8 % (0.0-4.0); MB 8.3 ng/ml
[2017-06-23 05:37] LABS: PARTIAL THROMBOPLASTIN TIME 29.4 SECONDS (23.5-31.3)
[2017-06-23 06:12] LABS: CALCIUM SERUM 8.5 mg/dL (8.4-10.2); CREATININE SERUM 0.7 mg/dL (0.6-1.4); GLOM FILT RATE Estimated 95.7 mL/min (>60); POTASSIUM 4.5 mmol/L (3.5-5.1)
[2017-06-23 08:22] LABS: HEMATOCRIT 31.7 % (38.0-50.0); MEAN CORPUSCULAR HEMOGLOBIN 28.1 PG (28-34); MEAN CORPUSCULAR HGB CONC 33.5 g/dL (30-36); MEAN PLATELET VOLUME 8.3 FL (6.5-11.5); RED BLOOD COUNT 3.78 X10e (3.90-5.60); RED CELL DISTRIBUTION WIDTH 15.3 % (11.0-15.5); WHITE BLOOD COUNT 9.5 X10e3 (4.0-10.5)
[2017-06-23 08:28] LABS: HEMOGLOBIN 10.6 gm/dL (13.0-16.0)
[2017-06-23 10:53] LABS: ARTERIAL BLD GAS O2 SATURATION 93.8 % (90.0-100.0); ARTERIAL BLOOD GAS CARBOXY HB 1.1 %sat (0.0-9.0); ARTERIAL BLOOD GAS HCO3 27.7 mmol/L; ARTERIAL BLOOD GAS MET HB 0.7 %sat (0.0-2.0); ARTERIAL BLOOD GAS PCO2 45.4 mmHg (35.0-45.0); ARTERIAL BLOOD GAS pH 7.394 (7.350-7.450)
[2017-06-23 10:54] LABS: ARTERIAL BLOOD GAS ALLEN TEST NORMAL; ARTERIAL BLOOD GAS ART SITE LEFT RADIAL; ARTERIAL BLOOD GAS PO2 75.7 mmHg (80.0-100); ARTERIAL DRAW? YES
[2017-06-23 10:55] LABS: ARTERIAL BLOOD GAS DELIVERY NASAL CANNULA
[2017-06-24 12:59] LABS: ARTERIAL BLD GAS O2 SATURATION 95.9 % (90.0-100.0); ARTERIAL BLOOD GAS CARBOXY HB 0.8 %sat (0.0-9.0); ARTERIAL BLOOD GAS HCO3 26.3 mmol/L; ARTERIAL BLOOD GAS MET HB 0.3 %sat (0.0-2.0); ARTERIAL BLOOD GAS PO2 97.1 mmHg (80.0-100)
[2017-06-24 13:00] LABS: ARTERIAL BLOOD GAS PCO2 53.5 mmHg (35.0-45.0)
[2017-06-24 13:01] LABS: ARTERIAL BLOOD GAS ALLEN TEST N; ARTERIAL BLOOD GAS ART SITE RIGHT RADIAL; ARTERIAL BLOOD GAS DELIVERY BIPAP; ARTERIAL DRAW? YES
[2017-06-24 13:41] LABS: %MB 7.7 % (0.0-4.0); MB 5.9 ng/ml
[2017-06-24 15:41] LABS: HEMATOCRIT 35.3 % (38.0-50.0); HEMOGLOBIN 11.3 gm/dL (13.0-16.0); MEAN CELL VOLUME 84.1 FL (83-96); MEAN CORPUSCULAR HGB CONC 32.1 g/dL (30-36); MEAN PLATELET VOLUME 8.4 FL (6.5-11.5); RED BLOOD COUNT 4.2 X10e (3.90-5.60); WHITE BLOOD COUNT 22.9 X10e3 (4.0-10.5)
[2017-06-24 15:48] LABS: BUN/CREATININE RATIO 23.33; CALCIUM SERUM 9.1 mg/dL (8.4-10.2); CREATININE SERUM 0.9 mg/dL (0.6-1.4); GLOM FILT RATE Estimated 86.2 mL/min (>60); POTASSIUM 4.6 mmol/L (3.5-5.1)
[2017-06-25 05:38] LABS: HEMATOCRIT 27.7 % (38.0-50.0); MEAN CELL VOLUME 83.6 FL (83-96); MEAN CORPUSCULAR HEMOGLOBIN 27.6 PG (28-34); MEAN PLATELET VOLUME 8.4 FL (6.5-11.5); RED BLOOD COUNT 3.32 X10e (3.90-5.60); RED CELL DISTRIBUTION WIDTH 15.8 % (11.0-15.5)
[2017-06-25 05:45] LABS: HEMOGLOBIN 9.1 gm/dL (13.0-16.0)
[2017-06-25 06:14] LABS: BUN/CREATININE RATIO 38.75; CALCIUM SERUM 8.6 mg/dL (8.4-10.2); CREATININE SERUM 0.8 mg/dL (0.6-1.4); GLOM FILT RATE Estimated 90.5 mL/min (>60); MAGNESIUM 2.1 mg/dL (1.6-3.0); POTASSIUM 3.8 mmol/L (3.5-5.1)
[2017-06-25 12:30] LABS: BASOPHIL% 0.1 % (0-2.5); DIFF IND YES; HEMATOCRIT 26.5 % (38.0-50.0); HEMOGLOBIN 8.8 gm/dL (13.0-16.0); LYMPHOCYTE# 0.6 X10e3 (1.0-3.5); LYMPHOCYTE% 3.7 % (17.0-45.0); MEAN CELL VOLUME 83.9 FL (83-96); MEAN CORPUSCULAR HEMOGLOBIN 27.9 PG (28-34); MEAN CORPUSCULAR HGB CONC 33.3 g/dL (30-36); MONOCYTE# 0.7 X10e3 (0-1.0); MONOCYTE% 4.4 % (3.0-12.0); NEUTROPHIL# 15.8 X10e3 (1.5-7.1); NEUTROPHIL% 91.8 % (40-75); PLATELET COUNT 202 X10e3 (140-420); RED BLOOD COUNT 3.15 X10e (3.90-5.60); RED CELL DISTRIBUTION WIDTH 15.9 % (11.0-15.5); WHITE BLOOD COUNT 17.2 X10e3 (4.0-10.5)
[2017-06-25 12:49] LABS: ANISOCYTOSIS SL; PLATELET ESTIMATE NORMAL (NORMAL)
[2017-06-26 08:38] LABS: HEMATOCRIT 25.5 % (38.0-50.0); HEMOGLOBIN 8.5 gm/dL (13.0-16.0); LYMPHOCYTE# 0.5 X10e3 (1.0-3.5); LYMPHOCYTE% 2.9 % (17.0-45.0); MEAN CELL VOLUME 83.5 FL (83-96); MEAN CORPUSCULAR HEMOGLOBIN 27.9 PG (28-34); MEAN CORPUSCULAR HGB CONC 33.4 g/dL (30-36); MEAN PLATELET VOLUME 8.2 FL (6.5-11.5); MONOCYTE# 0.6 X10e3 (0-1.0); MONOCYTE% 3.1 % (3.0-12.0); PLATELET COUNT 203 X10e3 (140-420); RED BLOOD COUNT 3.05 X10e (3.90-5.60); RED CELL DISTRIBUTION WIDTH 16.2 % (11.0-15.5); WHITE BLOOD COUNT 18.1 X10e3 (4.0-10.5)
[2017-06-26 08:40] LABS: DIFF IND NO
[2017-06-26 08:55] LABS: INR 1.1; PARTIAL THROMBOPLASTIN TIME 20.4 SECONDS (23.5-31.3); PROTHROMBIN TIME (PATIENT) 11.4 SECONDS (10.0-11.7)
[2017-06-27 05:36] LABS: HEMOGLOBIN 7.5 gm/dL (13.0-16.0); MEAN CELL VOLUME 84.3 FL (83-96); MEAN CORPUSCULAR HEMOGLOBIN 27.3 PG (28-34); MEAN CORPUSCULAR HGB CONC 32.4 g/dL (30-36); MEAN PLATELET VOLUME 8.7 FL (6.5-11.5); RED BLOOD COUNT 2.73 X10e (3.90-5.60); RED CELL DISTRIBUTION WIDTH 16.1 % (11.0-15.5)
[2017-06-27 06:17] LABS: BUN/CREATININE RATIO 55.71; CALCIUM SERUM 8.4 mg/dL (8.4-10.2); CREATININE SERUM 0.7 mg/dL (0.6-1.4); GLOM FILT RATE Estimated 95.7 mL/min (>60); POTASSIUM 3.6 mmol/L (3.5-5.1)
[2017-06-28 15:06] LABS: HEMATOCRIT 25.3 % (38.0-50.0); HEMOGLOBIN 8.5 gm/dL (13.0-16.0); MEAN CELL VOLUME 85.1 FL (83-96); MEAN CORPUSCULAR HEMOGLOBIN 28.4 PG (28-34); MEAN CORPUSCULAR HGB CONC 33.4 g/dL (30-36); MEAN PLATELET VOLUME 8.2 FL (6.5-11.5); RED BLOOD COUNT 2.98 X10e (3.90-5.60); RED CELL DISTRIBUTION WIDTH 15.8 % (11.0-15.5); WHITE BLOOD COUNT 11.5 X10e3 (4.0-10.5)
[2017-06-29 05:41] LABS: HEMATOCRIT 22.5 % (38.0-50.0); HEMOGLOBIN 7.5 gm/dL (13.0-16.0); MEAN CELL VOLUME 85.7 FL (83-96); MEAN CORPUSCULAR HEMOGLOBIN 28.5 PG (28-34); MEAN CORPUSCULAR HGB CONC 33.2 g/dL (30-36); RED BLOOD COUNT 2.62 X10e (3.90-5.60); RED CELL DISTRIBUTION WIDTH 15.7 % (11.0-15.5); WHITE BLOOD COUNT 8.6 X10e3 (4.0-10.5)
[2017-06-29 05:45] LABS: CALCIUM SERUM 8.5 mg/dL (8.4-10.2); CREATININE SERUM 0.6 mg/dL (0.6-1.4); GLOM FILT RATE Estimated 101.9 mL/min (>60)
[2017-06-30 05:29] LABS: HEMATOCRIT 19.7 % (38.0-50.0); MEAN CELL VOLUME 85.3 FL (83-96); MEAN CORPUSCULAR HEMOGLOBIN 28.2 PG (28-34); MEAN PLATELET VOLUME 9.1 FL (6.5-11.5); RED BLOOD COUNT 2.31 X10e (3.90-5.60); RED CELL DISTRIBUTION WIDTH 16.3 % (11.0-15.5); WHITE BLOOD COUNT 7.8 X10e3 (4.0-10.5)
[2017-06-30 05:32] LABS: HEMOGLOBIN 6.5 gm/dL (13.0-16.0)
[2017-07-01 06:20] LABS: HEMATOCRIT 28.2 % (38.0-50.0); MEAN CELL VOLUME 85.3 FL (83-96); MEAN CORPUSCULAR HEMOGLOBIN 28.2 PG (28-34); RED BLOOD COUNT 3.31 X10e (3.90-5.60); RED CELL DISTRIBUTION WIDTH 15.6 % (11.0-15.5); WHITE BLOOD COUNT 9.6 X10e3 (4.0-10.5)
[2017-07-01 07:03] LABS: HEMOGLOBIN 9.3 gm/dL (13.0-16.0)
[2017-07-01 08:01] LABS: ALBUMIN SERUM 3.1 g/dL (3.5-5.0); BILIRUBIN,TOTAL 1.3 mg/dL (0.2-2.0); BUN/CREATININE RATIO 25.71; CALCIUM SERUM 8.2 mg/dL (8.4-10.2); CREATININE SERUM 0.7 mg/dL (0.6-1.4); GLOM FILT RATE Estimated 95.7 mL/min (>60); POTASSIUM 4.2 mmol/L (3.5-5.1); PROTEIN TOTAL SERUM 5.3 g/dL (6.0-8.3)
[2017-07-02 06:27] LABS: HEMATOCRIT 28.2 % (38.0-50.0); HEMOGLOBIN 9.3 gm/dL (13.0-16.0); MEAN CELL VOLUME 85.5 FL (83-96); MEAN CORPUSCULAR HEMOGLOBIN 28.2 PG (28-34); MEAN CORPUSCULAR HGB CONC 33.1 g/dL (30-36); MEAN PLATELET VOLUME 9.2 FL (6.5-11.5); RED BLOOD COUNT 3.3 X10e (3.90-5.60); RED CELL DISTRIBUTION WIDTH 16.5 % (11.0-15.5); WHITE BLOOD COUNT 7.1 X10e3 (4.0-10.5)
[2017-07-02 07:06] LABS: ALBUMIN SERUM 3.1 g/dL (3.5-5.0); BILIRUBIN,TOTAL 0.9 mg/dL (0.2-2.0); BUN/CREATININE RATIO 28.57; CALCIUM SERUM 8.3 mg/dL (8.4-10.2); CREATININE SERUM 0.7 mg/dL (0.6-1.4); GLOM FILT RATE Estimated 95.7 mL/min (>60); POTASSIUM 4.7 mmol/L (3.5-5.1); PROTEIN TOTAL SERUM 5.4 g/dL (6.0-8.3)
[2017-07-03 06:29] LABS: HEMATOCRIT 27.3 % (38.0-50.0); HEMOGLOBIN 9.1 gm/dL (13.0-16.0); MEAN CELL VOLUME 85.5 FL (83-96); MEAN CORPUSCULAR HEMOGLOBIN 28.5 PG (28-34); MEAN CORPUSCULAR HGB CONC 33.3 g/dL (30-36); RED BLOOD COUNT 3.19 X10e (3.90-5.60); RED CELL DISTRIBUTION WIDTH 16.1 % (11.0-15.5); WHITE BLOOD COUNT 8.7 X10e3 (4.0-10.5)
[2017-07-03 07:23] LABS: BILIRUBIN,TOTAL 0.5 mg/dL (0.2-2.0); BUN/CREATININE RATIO 25.71; CALCIUM SERUM 8.4 mg/dL (8.4-10.2); CREATININE SERUM 0.7 mg/dL (0.6-1.4); GLOM FILT RATE Estimated 95.7 mL/min (>60); POTASSIUM 4.8 mmol/L (3.5-5.1)
[2017-07-03] MEDS ORDERED: PROTONIX PO (12:46)
[2017-07-03] MEDS ORDERED: AMIODARONE PO (12:46)
[2017-07-03] MEDS ORDERED: PREDNISONE10 MG PO (12:47)
[2017-07-03] MEDS ORDERED: NITROGLYGERIN0.4 MG SL (12:47)
[2017-07-03] MEDS ORDERED: [UNRECOGNIZED DRUG - OTHER] (12:50)
[2017-07-03] MEDS ORDERED: SEPTRA DS PO (12:50)
== END 2017-07-03 15:29 | disposition home or self-care (01) | DRG 166 ==
LOC: C5B 00:09 → CEDOF 00:09 → C5B 01:46 → CEDOF 02:15 → C5B 02:15 → CICCU2 06-24 13:49 → CICCU3 06-25 00:28 → C5C 06-25 13:25
PROVIDERS: Internal Medicine; Internal Medicine Advanced Heart Failure and Transplant Cardiology; Internal Medicine Cardiovascular Disease; Internal Medicine Pulmonary Disease; Nurse Practitioner
PROC: B32TYZZ Computerized Tomography (CT Scan) of Left Pulmonary Artery using Other Contrast (ICD-10-PCS; 2017-06-22)
PROC: B32SYZZ Computerized Tomography (CT Scan) of Right Pulmonary Artery using Other Contrast (ICD-10-PCS; 2017-06-22)
PROC: 4A023N6 Measurement of Cardiac Sampling and Pressure, Right Heart, Percutaneous Approach (ICD-10-PCS; 2017-06-23)
PROC: B211YZZ Fluoroscopy of Multiple Coronary Arteries using Other Contrast (ICD-10-PCS; 2017-06-23)
PROC: B215YZZ Fluoroscopy of Left Heart using Other Contrast (ICD-10-PCS; 2017-06-23)
PROC: 0B9C8ZX Drainage of Right Upper Lung Lobe, Via Natural or Artificial Opening Endoscopic, Diagnostic (ICD-10-PCS; principal; 2017-06-28 10:54)
PROC: 30233N1 Transfusion of Nonautologous Red Blood Cells into Peripheral Vein, Percutaneous Approach (ICD-10-PCS; 2017-06-30)
PROC: 0DB68ZX Excision of Stomach, Via Natural or Artificial Opening Endoscopic, Diagnostic (ICD-10-PCS; 2017-07-01)
DX: J96.21 Acute and chronic respiratory failure with hypoxia (principal); J18.9 Pneumonia, unspecified organism; I47.2 Ventricular tachycardia; J44.0 Chronic obstructive pulmonary disease with (acute) lower respiratory infection; D62 Acute posthemorrhagic anemia; R04.2 Hemoptysis; J44.1 Chronic obstructive pulmonary disease with (acute) exacerbation; K92.1 Melena; R07.9 Chest pain, unspecified; J96.22 Acute and chronic respiratory failure with hypercapnia; I25.10 Atherosclerotic heart disease of native coronary artery without angina pectoris; Z95.1 Presence of aortocoronary bypass graft; K25.9 Gastric ulcer, unspecified as acute or chronic, without hemorrhage or perforation; I10 Essential (primary) hypertension; I35.0 Nonrheumatic aortic (valve) stenosis; E78.5 Hyperlipidemia, unspecified; K21.9 Gastro-esophageal reflux disease without esophagitis; Z87.891 Personal history of nicotine dependence; Z85.46 Personal history of malignant neoplasm of prostate; K29.50 Unspecified chronic gastritis without bleeding; Z99.81 Dependence on supplemental oxygen; Z66 Do not resuscitate
CPT/HCPCS: 36430; 36600; 71010; 71275; 74176; 80048; 80053; 82274; 82308; 82550; 82553; 82803; 82810; 82947; 83735; 83880; 84484; 85025; 85027; 85610; 85730; 86677; 86850; 86900; 86901; 86923; 87070; 87077; 87102; 87116; 87186; 87205; 87206; 87252; 87254; 87449; 87899; 88108; 88305; 88312; 93005; 94640; 94660; 94664; 94760; 94761; 99152; 99153; C1769; C1887; C1894; C9113; J0171; J0692; J1644; J1650; J1940; J2185; J2250; J2270; J2405; J2543; J2920; J2930; J3010; J3475; P9016; Q9967